=== PATIENT | female | born 1950 | race Caucasian/White ===

== ENCOUNTER 2016-06-12 10:41 | Inpatient (IN) | payer OTHER ==
[~2016-06-12] VITALS: Ht 160 cm; Wt 77.1 kg
--- NOTE | 2016-06-12 10:53 | NUR ---
PT STATES THAT SHE HAS COPD AND THAT FOR THE PAST MONTH SHE HAS HAD A COUGH, WAS STARTED ON STEROIDS 3 DAYS AGO AND USES NEBULIZER WITH NO RELIEF. PT COMPLAINS OF NON PRODUCTIVE COUGH AND FEELS SOB, O2 SAT 95 %
--- NOTE | 2016-06-12 11:07 | ED DYSPNEA/ASTHMA COMPLAINT ---
History of Present Illness General Chief Complaint: Dyspnea (COPD, CHF, Other) Stated Complaint: SIB MD CH, SOB/WHEEZING/COUGH Source: patient, old records Exam Limitations: no limitations Vital Signs & Intake/Output Vital Signs & Intake/Output Vital Signs Date Time Temp Pulse Resp B/P Pulse O2 O2 Flow FiO2 Ox Delivery Rate 06/12 1401 98.3 70 18 145/75 93 06/12 1204 93 06/12 1130 Room Air 06/12 1052 96.7 82 20 153/79 95 Room Air Allergies Coded Allergies: codeine (UNKNOWN 06/12/16) hydrocodone (GI UPSET 06/12/16) Triage Note: PT STATES THAT SHE HAS COPD AND THAT FOR THE PAST MONTH SHE HAS HAD A COUGH, WAS STARTED ON STEROIDS 3 DAYS AGO AND USES NEBULIZER WITH NO RELIEF. PT COMPLAINS OF NON PRODUCTIVE COUGH AND FEELS SOB, O2 SAT 95 % Triage Nurses Notes Reviewed? 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 She was started on some steroids earlier this week and has been using her nebulizer breathing treatments around- the-clock without improvement. She denies any chest pain, no sputum production no fever no chills no abdominal pain nausea vomiting no leg swelling. She states last time she was admitted for her COPD was in 2010 at which time he stopped smoking. He is feeling dizzy lightheaded or weak (MICAH DANIELS) Reconcile Medications Albuterol Sulfate (Proair Hfa) 90 MCG HFA.AER.AD 2 PUF INH Q4-6 PRN PRN RESPIRATORY (Reported) Albuterol Sulfate 2.5 MG/3 ML (0.083 %) VIAL.NEB 1 Vial INH/TULIO Q4P PRN RESPIRATORY (Reported) Brimonidine Tartrate/Timolol (Combigan Eye Drops) 0.2 %-0.5 % DROPS 1 DROP OP BID GLAUCOMA (Reported) Buspirone HCl 30 MG TABLET 1 TAB PO BID MENTAL HEALTH (Reported) Dorzolamide HCl 2 % DROPS 1 GTT OPH BID GLAUCOMA (Reported) Escitalopram Oxalate 20 MG TABLET 1 TAB PO DAILY MENTAL HEALTH (Reported) Hydrochlorothiazide 25 MG TABLET 1 TAB PO DAILY WATER PILL (Reported) Levothyroxine Sodium 150 MCG TABLET 1 TAB PO DAILY AC THYROID (Reported) Mirtazapine 30 MG TABLET 1 TAB PO QPM SLEEP (Reported) Montelukast Sodium 10 MG TABLET 1 TAB PO DAILY ALLERGIES (Reported) Potassium Chloride 20 MEQ TAB.ER.PRT 1 TAB PO DAILY SUPPLEMENT (Reported) Prednisone 10 MG TABLET 2 TAB PO DAILY BREATHING PROBLEMS (Reported) Ranitidine HCl 300 MG TABLET 1 TAB PO QPM HEARTBURN (Reported) Simvastatin (Simvastatin*) 40 MG TABLET 1 TAB PO QPM CHOLESTEROL (Reported) Trazodone HCl 50 MG TABLET 1 TAB PO QPM SLEEP (Reported) Umeclidinium Brm/Vilanterol Tr (Anoro Ellipta 62.5-25 Mcg INH) 62.5 MCG-25 MCG/ ACTUATION BLST.W.DEV 1 PUFF PO DAILY BREATHING PROBLEMS (Reported) (BECCA CORONEL,ADRIENNE [place]) Past History Travel History Traveled to [place] past 21 day No Medical History Any Pertinent Medical History? see below for history Neurological: NONE EENT: glaucoma Cardiovascular: hypertension, hyperlipidemia Respiratory: COPD Gastrointestinal: NONE Hepatic: NONE Renal: NONE Musculoskeletal: NONE Psychiatric: NONE Endocrine: hypothyroidism Blood Disorders: NONE Cancer(s): bladder cancer DIRECTOR CARDIOVASCULAR/Reproductive: NONE Pneumonia Vaccine: 08/10/10 Influenza Vaccine: 03/10/10 Surgical History Surgical History: non-contributory Psychosocial History Who do you live with Patient/Self What is your primary language Welsh Tobacco Use: Never used ETOH Use: denies use Illicit Drug Use: denies illicit drug use Family History Hx Contributory? No (MICAH DANIELS) Review of Systems Review of Systems Constitutional: Reports: see HPI. All Other Systems: Reviewed and Negative Comments Review of systems: See HPI, All other systems negative. Constitutional, no chills no fever, no malaise HEENT: No visual changes no sore throat no congestion, Cardiovascular: No chest pain , no palpitation Skin, no jaundice no rashes, no change in skin Respiratory: dyspnea cough no sputum GI: No nausea no vomiting, no diarrhea : No dysuria No hematuria, no frequency, no discharge Muscle skeletal: No joint pain, no joint swelling, no back pain Neurologic: No numbness no headache Psych: No stress Heme/endocrine: No bruising no bleeding Immunology: No lymphadenopathy (MICAH DANIELS) Physical Exam Physical Exam General Appearance: well developed/nourished, no apparent distress, alert, awake Respiratory: wheezing Comments: Well-developed well-nourished person in no acute distress HEENT: Normal EENT exam; PERRL, EOMI, HEAD is atraumatic. moist mucous membranes. Neck: Supple, normal range of motion Back: Nontender. Full range of motion Cardiovascular: Regular rate and rhythms no murmurs rubs or gallops Respiratory: Chest nontender.There were no bony deformities, no asymmetry. No respiratory distress. Wheezing bilaterally no rhonchi no rales Abdomen: Soft, nontender nondistended, no appreciable organomegaly. Normal bowel sounds. No rebound/guarding, Extremity: No edema, full range of motion of extremities Neuro: Alert oriented x3, motor sensory normal. There were no obvious focal neurologic abnormalities. Skin: No appreciable rash on exposed skin, skin is warm and dry. Psych: Mood and affect is normal, memory and judgment is normal. Core Measures ACS in differential dx? Yes Severe Sepsis Present: No Septic Shock Present: No (MICAH DANIELS) Progress Differential Diagnosis: asthma, AMI, bronchitis, costochondritis, CHF, COPD, musculoskeletal pain, pericarditis, pulmonary embolism, pneumonia, pneumothorax, rib fracture, unstable angina Diagnostic Imaging: Viewed by Me: Radiology Read. Discussed w/RAD: Radiology Read. Radiology Impression: PATIENT: CALVIN MATSON PRESENT AGE: 65 PATIENT ACCOUNT NO: [id number] : 51 LOCATION: [facility] ORDERING PHYSICIAN: ADRIENNE HERNANDEZ DO SERVICE DATE: 06/12/16 EXAM TYPE: RAD - XRY-CHEST XRAY, PA AND LATERAL EXAMINATION: XR CHEST CLINICAL INFORMATION: Cough. Shortness of breath. History of small cell lung cancer and bladder cancer. COMPARISON: CT scan of 08/27/15. TECHNIQUE: PA and lateral views of the chest were obtained. FINDINGS: No significant abnormality is noted involving the heart, lungs, mediastinum, bony thorax, or soft tissues. Minimal linear opacity at the left base is unchanged from previous and consistent with scarring. No focal consolidation, mass lesion or other abnormality is demonstrated. IMPRESSION: Unremarkable examination. DICTATED BY: LUISANA LUNA MD DATE/TIME DICTATED:06/12/161218 OBSERVER GRAVITY PROSPECTING:WILBERT DATE/ TIME TRANSCRIBED:06/12/161218 CONFIDENTIAL, DO NOT COPY WITHOUT APPROPRIATE AUTHORIZATION. <Electronically signed in Other Vendor System> SIGNED BY: LUISANA LUNA MD 06/12/16 1225 Initial ED EKG: normal intervals, normal p-waves, normal QRS complex, normal sinus rhythm (80) (MICAH DANIELS) Plan of Care: Orders Procedure Date/time Status Regular Diet 06/12 D Active Misc Message 06/12 1406 Active ED Holding Orders 06/12 1406 Active Vital Signs 06/12 1406 Active Code Status 06/12 1406 Active Admit to inpatient 06/12 1351 Active Patient Data 06/12 1335 Active BLOOD CULTURE 06/12 1137 Active TROPONIN LEVEL 06/12 1137 Complete COMPREHENSIVE METABOLIC PANEL 06/12 1137 Complete CBC WITHOUT DIFFERENTIAL 06/12 1137 Complete B-TYPE NATRIURETIC PEP (BNP) 06/12 1137 Complete EKG 06/12 1137 Active Current Medications Sig/Mario Start time Last Medication Dose Stop Time Status Admin Brimonidine Tartrate 1 GTT ONCE ONE 06/12 1545 UNVr (Alphagan) 06/12 1546 Dorzolamide HCl 1 GTT ONCE ONE 06/12 1545 UNVr (Trusopt 2% 10 ML) 06/12 1546 Buspirone HCl 30 MG ONCE ONE 06/12 1530 UNVr (Buspar) 06/12 1531 Laboratory Tests 06/12/16 1220: Anion Gap 17 H, Estimated GFR > 60, BUN/Creatinine Ratio 11.3, Glucose 134 H, Calcium 10.1, Total Bilirubin 0.4, AST 27, ALT 27, Alkaline Phosphatase 65, Troponin I < 0.01, Ivf-F-Ajwnghlsqeh Pept 94.2, Total Protein 7.3, Albumin 4.5, Globulin 2.8, Albumin/Globulin Ratio 1.6, CBC w Diff NO MAN DIFF REQ, RBC 4.61, MCV 91.3, MCH 31.2 H, RDW 13.6, MPV 7.4, Gran % 80.6 H, Lymphocytes % 11.6 L, Monocytes % 4.6, Eosinophils % 2.8, Basophils % 0.4, Absolute Granulocytes 8.0 H, Absolute Lymphocytes 1.1 L, Absolute Monocytes 0.5, Absolute Eosinophils 0.3 , Absolute Basophils 0, PUBS MCHC 34.2 Microbiology 06/12 1330 BLOOD: Blood Culture - RECD 06/12 1220 BLOOD: Blood Culture - RECD Labs ordered DuoNeb ordered patient medicated with solumedrol 125 IV Patient ambulatory sats dropped to 89% symptomatic, discussed with her need for admission at this time which she is in agreement with case was discussed with Dr. Beckham will admit (MICAH DANIELS) Departure Departure Time of Disposition: 1332 Disposition: STILL A PATIENT Condition: Stable Clinical Impression Primary Impression: COPD exacerbation Referrals: RANDA BECKHAM MD (PCP/Family) Departure Forms: Customer Survey General Discharge Information Admission Note Spoke With: RANDA BECKHAM MD Documentation of Exam: Documentation of any treatments & extenuating circumstances including Concerns Regarding Discharge (functional status, medication knowledge or non-compliance, living conditions, etc.) that warrant an admission rather than observation: Patient has failed outpatient therapy with by mouth steroids, oxygen sats dropped to 89% with ambulation premature discharge at this time would BE medically harmful require IV steroids breathing treatments when necessary pulmonology consult (MICAH DANIELS) PA/TITLE I TEACHER Co-Sign Statement Statement: ED Attending supervision documentation- [X] I saw and evaluated the patient. I have also reviewed all the pertinent lab results and diagnostic results. I agree with the findings and the plan of care as documented in the PA's/TITLE I TEACHER's documentation. [] I have reviewed the ED Record and agree with the PA's/TITLE I TEACHER's documentation. [] Additions or exceptions (if any) to the PAs/TITLE I TEACHER's note and plan are summarized below: [] (BECCA CORONEL,ADRIENNE North) Critical Care Note Critical Care Note Critical Care Time: non-applicable (MICAH DANIELS)
[2016-06-12] MEDS ORDERED: DORZOLAMIDE HCL10 M1 OPH (11:18)
[2016-06-12] MEDS ORDERED: COMBIGAN EYE DRO5 ML OP (11:18)
[2016-06-12] MEDS ORDERED: PREDNISONE10 M2 PO (11:18)
[2016-06-12] MEDS ORDERED: BUSPIRONE HCL30 M1 PO (11:19)
[2016-06-12] MEDS ORDERED: TRAZODONE HCL50 M1 PO (11:19)
[2016-06-12] MEDS ORDERED: MIRTAZAPINE30 M2 PO (11:19)
[2016-06-12] MEDS ORDERED: ANORO ELLIPTA1 EACH PO (11:20)
[2016-06-12] MEDS ORDERED: ESCITALOPRAM OX20 MG PO (11:20)
[2016-06-12] MEDS ORDERED: MONTELUKAST SOD10 M1 PO (11:21)
[2016-06-12] MEDS ORDERED: LEVOTHYROXINE150 MCG PO (11:21)
[2016-06-12] MEDS ORDERED: SIMVASTATIN40 M1 PO (11:22)
[2016-06-12] MEDS ORDERED: POTASSIUM CHLO20 ME2 PO (11:22)
[2016-06-12] MEDS ORDERED: HYDROCHLOROTHIA25 M1 PO (11:22)
--- NOTE | 2016-06-12 11:31 | NUR ---
NATHANAEL SENA TO BEDSIDE FOR PT EVAL.
--- NOTE | 2016-06-12 12:05 | NUR ---
PT TO AND FROM RAD BY STRETCHER. RESP AT BEDSIDE FOR DOUNEB.
--- NOTE | 2016-06-12 12:23 | NUR ---
IV EST, PT MEDICATED WITH SOLUMEDROL PER EMAR. BLOOD DRAWN AND SENT TO LAB-[facility],1ST SET OF [facility].
--- NOTE | 2016-06-12 12:25 | RADIOLOGY REPORT ---
EXAMINATION: XR CHEST CLINICAL INFORMATION: Cough. Shortness of breath. History of small cell lung cancer and bladder cancer. COMPARISON: CT scan of 08/27/15. TECHNIQUE: PA and lateral views of the chest were obtained. FINDINGS: No significant abnormality is noted involving the heart, lungs, mediastinum, bony thorax, or soft tissues. Minimal linear opacity at the left base is unchanged from previous and consistent with scarring. No focal consolidation, mass lesion or other abnormality is demonstrated. IMPRESSION: Unremarkable examination.
[2016-06-12 12:28] LABS: ABSOLUTE BASOPHIL COUNT 0 /CUMM (0.0-0.2); ABSOLUTE EOSINOPHIL COUNT 0.3 /CUMM (0.0-0.7); ABSOLUTE LYMPH COUNT 1.1 /CUMM (1.2-3.4); ABSOLUTE MONOCYTE COUNT 0.5 /CUMM (0.10-0.60); BASOPHIL % 0.4 % (0.0-2.0); EOSINOPHIL % 2.8 % (0-5); GRANULOCYTE % 80.6 % (42.2-75.2); HEMATOCRIT 42.1 % (37-47); MEAN CORPUSCULAR HGB 31.2 PG (27.0-31.0); MEAN CORPUSCULAR HGB CONC 34.2 G/DL (33.0-37.0); MEAN CORPUSCULAR VOLUME 91.3 FL (81.0-99.0); MEAN PLATELET VOLUME 7.4 FL (7.4-10.4); PLATELET COUNT 282 /CUMM (130-400); RBC DISTRIBUTION WIDTH 13.6 % (11.5-14.5); RED BLOOD CELL CT 4.61 /CUMM (4.20-5.40); WHITE BLOOD CELL COUNT 9.9 /CUMM (4.8-10.8)
--- NOTE | 2016-06-12 13:41 | History & Physical ---
See Addendum YUDI CORONEL,[facility] 06/12/16 1340: General Information and HPI MD Statement: I have seen and personally examined CALVIN MATSON and documented this H&P. The patient is a 65 year old F who presented with a patient stated chief complaint of cough and shortness of breath. Source of Information: patient Exam Limitations: no limitations History of Present Illness: This is a 65-year-old female with past medical history of COPD not on home oxygen, hypertension, depression, bladder cancer, hyperlipidemia, asthma, hypothyroidism, COPD, presents with worsening cough and shortness of breath. As per patient she started having cough, with thick yellowish sputum 2 weeks after Thanksgiving, which got better in the middle but for the past 2 weeks she has been having really bad cough productive of greenish sputum but no blood, shortness of breath, wheezing, she states that her lesion makes her shortness of breath worse, denies any fever, chills. She lives in assisted living facility and states that many people are sick around her including some volar admitted in hospital for pneumonia. [address] Quach who is her pari mutuel ticket cashier and she was she was started on Medrol pack, she took but did not improve her shortness of breath and will. She also states that she has been using her inhalers more often but has not made any significant difference in her shortness of breath. She denies any recent hospitalization or exacerbation of COPD, as hospitalization for COPD exacerbation was in 2010 that when she's quit smoking as well. She denies any nausea, vomiting, fever T, chills, abdominal pain, any changes in urinary symptoms or any tinges in bowel movements, As a complains of some numbness in her feet but no tingling, pain going on for a long time now. She follows Dr. Quach her pari mutuel ticket cashier, Dr. Camargo as her oncologist, He has had both her pneumonia anmd flu shot recently. Allergies/Medications Allergies: Coded Allergies: codeine (UNKNOWN 06/12/16) hydrocodone (GI UPSET 06/12/16) Home Med list Albuterol Sulfate (Proair Hfa) 90 MCG HFA.AER.AD 2 PUF INH Q4-6 PRN PRN RESPIRATORY (Reported) Albuterol Sulfate 2.5 MG/3 ML (0.083 %) VIAL.NEB 1 Vial INH/TULIO Q4P PRN RESPIRATORY (Reported) Brimonidine Tartrate/Timolol (Combigan Eye Drops) 0.2 %-0.5 % DROPS 1 DROP OP BID GLAUCOMA (Reported) Buspirone HCl 30 MG TABLET 1 TAB PO BID MENTAL HEALTH (Reported) Dorzolamide HCl 2 % DROPS 1 GTT OPH BID GLAUCOMA (Reported) Escitalopram Oxalate 20 MG TABLET 1 TAB PO DAILY MENTAL HEALTH (Reported) Hydrochlorothiazide 25 MG TABLET 1 TAB PO DAILY WATER PILL (Reported) Levothyroxine Sodium 150 MCG TABLET 1 TAB PO DAILY AC THYROID (Reported) Mirtazapine 30 MG TABLET 1 TAB PO QPM SLEEP (Reported) Montelukast Sodium 10 MG TABLET 1 TAB PO DAILY ALLERGIES (Reported) Potassium Chloride 20 MEQ TAB.ER.PRT 1 TAB PO DAILY SUPPLEMENT (Reported) Prednisone 10 MG TABLET 2 TAB PO DAILY BREATHING PROBLEMS (Reported) Ranitidine HCl 300 MG TABLET 1 TAB PO QPM HEARTBURN (Reported) Simvastatin (Simvastatin*) 40 MG TABLET 1 TAB PO QPM CHOLESTEROL (Reported) Trazodone HCl 50 MG TABLET 1 TAB PO QPM SLEEP (Reported) Umeclidinium Brm/Vilanterol Tr (Anoro Ellipta 62.5-25 Mcg INH) 62.5 MCG-25 MCG/ ACTUATION BLST.W.DEV 1 PUFF PO DAILY BREATHING PROBLEMS (Reported) Compliance With Home Meds: GOOD Past History Travel History Traveled to [place] past 21 day No Medical History Neurological: NONE EENT: glaucoma Cardiovascular: hypertension, hyperlipidemia Respiratory: COPD Gastrointestinal: NONE Hepatic: NONE Renal: NONE Musculoskeletal: NONE Psychiatric: NONE Endocrine: hypothyroidism Blood Disorders: NONE Cancer(s): bladder cancer 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 Assisted Living Who Do You Live With? self Services at Home: None Primary Language: Bengali Smoking Status: Former Smoker ETOH Use: denies use Illicit Drug Use: denies illicit drug use Functional Ability ADLs Independent: dressing, eating, toileting, bathing. Ambulation: independent IADLs Independent: shopping, housework, finances, food prep, telephone, transportation , medication admin. Review of Systems Review of Systems Constitutional: Denies: chills, fever. Cardiovascular: Denies: chest pain, palpitations. Respiratory: Reports: see HPI, cough, short of breath, sputum production. GI: Denies: abdominal pain, constipation, diarrhea, nausea, vomiting. Genitourinary: Denies: dysuria, frequency. Exam & Diagnostic Data Last 24 Hrs of Vital Signs/I&O Vital Signs Date Time Temp Pulse Resp B/P Pulse O2 O2 Flow FiO2 Ox Delivery Rate 06/12 1740 98.5 83 20 160/76 92 Room Air 06/12 1720 92 Room Air 06/12 1657 91 06/12 1624 99.3 90 18 169/84 93 Room Air 06/12 1401 98.3 70 18 145/75 93 06/12 1204 93 06/12 1130 Room Air 06/12 1052 96.7 82 20 153/79 95 Room Air Intake & Output 06/12 1600 06/12 0800 06/12 0000 Intake Total Output Total Balance Patient 77.111 kg Weight Physical Exam General Appearance Alert, Oriented X3, Cooperative, No Acute Distress Cardiovascular Regular Rate, Normal S1, Normal S2, No Murmurs Lungs b/l diffuse wheezing Abdomen Normal Bowel Sounds, Soft, No Tenderness Extremities No Clubbing, No Cyanosis, No Edema Last 24 Hrs of Labs/Jcaob: Laboratory Tests 06/12/16 1220: Anion Gap 17 H, Estimated GFR > 60, BUN/Creatinine Ratio 11.3, Glucose 134 H, Calcium 10.1, Total Bilirubin 0.4, AST 27, ALT 27, Alkaline Phosphatase 65, Troponin I < 0.01, Zyz-J-Seawljrlupv Pept 94.2, Total Protein 7.3, Albumin 4.5, Globulin 2.8, Albumin/Globulin Ratio 1.6, CBC w Diff NO MAN DIFF REQ, RBC 4.61, MCV 91.3, MCH 31.2 H, RDW 13.6, MPV 7.4, Gran % 80.6 H, Lymphocytes % 11.6 L, Monocytes % 4.6, Eosinophils % 2.8, Basophils % 0.4, Absolute Granulocytes 8.0 H, Absolute Lymphocytes 1.1 L, Absolute Monocytes 0.5, Absolute Eosinophils 0.3 , Absolute Basophils 0, PUBS MCHC 34.2 Microbiology 06/12 1330 BLOOD: Blood Culture - RECD 06/12 1220 BLOOD: Blood Culture - RECD Diagnostic Data EKG Results Sinus rhythm heart rate 75 Assessment/Plan Assessment: This is a 65-year-old female with past medical history of COPD not on home oxygen, hypertension, depression, bladder cancer, hyperlipidemia, asthma, hypothyroidism, COPD, presents with worsening cough and shortness of breath. Vitals upon presentation temperature 96.7, pulse 82, respiratory rate 20, pressure 153/79, saturating in mid 95 on room air. Pertinent labs, white count 9.9, H&H stable, BP within normal limits Chest x-ray did not show any acute cardiopulmonary findings. We'll admit the patient on Tamiflu and monitor for the following conditions: COPD exacerbation: Oxygen supplementation as needed to keep saturation above 90% TRC/nebs as needed IV Solu-Medrol 60 mg every 6 hours Will watch off of antibiotics as patient does not have any fever, any white count. History of hyperlipidemia: Continue atorvastatin 20 mg daily History of hypothyroidism We'll continue levothyroxine 0.15 mg daily History of hypertension We'll continue home dose of hydrochlorothiazide 25 mg daily History of depression We'll continue Lexapro 20 mg daily and mirtazapine, Mild pain pathway DVT prophylaxis with Lovenox Patient's full code. As Ranked By This Provider Problem List: 1. COPD exacerbation Core Measures/Miscellaneous Acute Coronary Syndrome ACS Diagnosis: No Cerebrovascular Accident CVA/TIA Diagnosis: No Congestive Heart Failure CHF Diagnosis: No Venous Thromboembolism VTE Risk Factors: Acute medical illness, Age > 40 VTE Prophylaxis Ordered Inpt: [facility]- [facility] prophylaxis d/t: No contraindications No VTE Pharm Prophylaxis d/t: No contraindications VTE Diagnosis: No VTE Type: NONE VTE Confirmed by (Test): NONE Severe Sepsis Severe Sepsis Present: No Septic Shock Septic Shock Present: No Miscellaneous Documentation Attending Case Discussed With: RANDA SMITH MD Primary Care Physician: RANDA SMITH MD Patient sees these Specialists . Level of Patient Care: General Medicine OBDULIO PENG MD 06/12/162025: Resident Review Statement Resident Statement: examined this patient, discussed with software intern, agreed with software intern Other Findings: 65-year-old female with a past medical history COPD not on home oxygen, asthma, bladder cancer status post resection, radiation and chemotherapy 4 years ago, hypertension, hypothyroidism, former smoker who presents with cough productive of creamy sputum and shortness of breath on exertion and occasionally at rest for a few weeks now. Cough and shortness of breath not improved by increased use of nebs at home. She called her pari mutuel ticket cashier Dr. Quach who gave her a medrol dose pack which she took without relief hence her her presentation today. She also reports bilateral numbness of the lower extremities from ankles to her feet for the past 4 months. Reports multiple sick contacts which she is in an elderly people home. She received her flu and pneumonia shots last year. On examination-she is awake, alert and oriented 3, coarse expiratory wheezing heard bilaterally, heart sounds regular, no murmurs, decreased sensation in the bilateral lower extremities especially on the plantar surfaces of feet no pedal edema Assessment COPD exacerbation Plan Admit to gen med IV Solu-Medrol 60 mg every 6 hours IV azithromycin [facility] nebs Check rapid flu Sputum cultures Check vitamin D and vitamin B12 Call pulmonary consult in a.m.-Dr. Trejo Resume important home medications DVT present prophylaxis with subcutaneous Lovenox Heart healthy diet
--- NOTE | 2016-06-12 14:10 | NUR ---
FOOD TRAY ORDERED FOR PT.
[2016-06-12] MEDS ORDERED: RANITIDINE HCL300 M1 PO (14:28)
[2016-06-12] MEDS ORDERED: PROAIR HFA8.5 GM INH (14:29)
[2016-06-12] MEDS ORDERED: ALBUTEROL2.5 MG/3 M INH/SOL (14:29)
--- NOTE | 2016-06-12 14:32 | NUR ---
LUNCH TRAY DELIVERED, PT ALERT AND SITTING UP IN BED TO EAT IN NAD. DENIES ANY COMPLAINTS/CONCERNS.
--- NOTE | 2016-06-12 15:25 | NUR ---
PT ADMITTED TO ROOM 229-2
--- NOTE | 2016-06-12 16:00 | NUR ---
HOUSE STAFF AT BEDSIDE
--- NOTE | 2016-06-12 16:21 | NUR ---
RESP CALLED FOR LOUANNB.
--- NOTE | 2016-06-12 16:54 | NUR ---
RESP AT BEDSIDE FOR DUONEB. REPORT GIVEN TO JULIO CÉSAR BROWN
--- NOTE | 2016-06-12 17:03 | NUR ---
[facility] CALLED FOR TRANSPORT.
[2016-06-12 17:40] VITALS: BP 160/76
--- NOTE | 2016-06-12 17:45 | NUR ---
PT ARRIVED TO FLOOR AT 1720 FROM ER VIA STRETCHER. PT A/V/OX3. ON RA. O2 SAT 92%. INSP/EXP WHEEZES NOTED THROUGHOUT LUNGS. NONPRODUCTIVE COUGH. BP 160/76, BOTH PORT SURVEYOR AND RESIDENT AWARE. SKIN INTACT. NO C/O PAIN AT THIS TIME. STEADY GAIT OOB. PT C/O OF HAVING PENCIL LOOSE BMS THAT ARE CHRONIC. REGULAR DIET. PT ORIENTED TO ROOM, CALL HUDSON, AND STAFF. WILL CONTINUE TO MONITOR.
--- NOTE | 2016-06-12 20:11 | Admission Certification ---
Admission Certification Certification Statement - As attending physician, I certify that at the time of - admission, based on clinical presentation, severity of - symptoms, need for further diagnostic testing and - therapeutic interventions, and risk of adverse outcomes - without in-hospital treatment, in my clinical assessment, - this patient requires an acute hospital stay for a minimum - of two nights or longer. I have also considered psychsocial - factors such as support system, advanced age, financial - issues, cognitive issues, and failed out-patient treatments, - past re-admission history, safety of patient, and lack of - compliance as applicable. Specific rationale supporting this admission is: Exacerbation of her COPD
--- NOTE | 2016-06-12 20:15 | PN- Att Addend ---
Attending Addendum Attending Brief Note 65-year-old white female history of COPD is doing fairly well until after Thanksgiving when she started having trouble breathing increased wheezes to the point she needed more inhalers. She even took a Medrol dose pack which this time did not work is coughing and bringing up yellow greenish sputum. No fever no chills or came to the ER was admitted for intensive treatment with IV steroids antibiotic therapy check sputum for O2 saturation around 92 % on room air. Her chest x-ray showed no acute infiltrates, her white count 9900. Laboratory Tests 06/12 1220 Chemistry Sodium (137 - 145 mmol/L) 142 Potassium (3.5 - 5.1 mmol/L) 3.8 Chloride (98 - 107 mmol/L) 98 Carbon Dioxide (22 - 30 mmol/L) 27 Anion Gap (5 - 16) 17 H BUN (7 - 17 mg/dL) 9 Creatinine (0.5 - 1.0 mg/dL) 0.8 Estimated GFR (>60 ml/min) > 60 BUN/Creatinine Ratio (7 - 25 %) 11.3 Glucose (65 - 99 mg/dL) 134 H Calcium (8.4 - 10.2 mg/dL) 10.1 Total Bilirubin (0.2 - 1.3 mg/dL) 0.4 AST (14 - 36 U/L) 27 ALT (9 - 52 U/L) 27 Alkaline Phosphatase (<127 U/L) 65 Troponin I (< 0.11 ng/ml) < 0.01 Vtf-P-Idheqkylhku Pept (<125 pg/mL) 94.2 Total Protein (6.3 - 8.2 g/dL) 7.3 Albumin (3.5 - 5.0 g/dL) 4.5 Globulin (1.9 - 4.2 gm/dL) 2.8 Albumin/Globulin Ratio (1.1 - 2.2 %) 1.6 Vitamin B12 (239 - 931 pg/mL) Pending 25-OH Vitamin D Total (30 - 100 ng/ml) Pending Hematology CBC w Diff NO MAN DIFF REQ WBC (4.8 - 10.8 /CUMM) 9.9 RBC (4.20 - 5.40 /CUMM) 4.61 Hgb (12.0 - 16.0 G/DL) 14.4 Hct (37 - 47 %) 42.1 MCV (81.0 - 99.0 FL) 91.3 MCH (27.0 - 31.0 PG) 31.2 H RDW (11.5 - 14.5 %) 13.6 Plt Count (130 - 400 /CUMM) 282 MPV (7.4 - 10.4 FL) 7.4 Gran % (42.2 - 75.2 %) 80.6 H Lymphocytes % (20.5 - 51.1 %) 11.6 L Monocytes % (1.7 - 9.3 %) 4.6 Eosinophils % (0 - 5 %) 2.8 Basophils % (0.0 - 2.0 %) 0.4 Absolute Granulocytes (1.4 - 6.5 /CUMM) 8.0 H Absolute Lymphocytes (1.2 - 3.4 /CUMM) 1.1 L Absolute Monocytes (0.10 - 0.60 /CUMM) 0.5 Absolute Eosinophils (0.0 - 0.7 /CUMM) 0.3 Absolute Basophils (0.0 - 0.2 /CUMM) 0 PUBS MCHC (33.0 - 37.0 G/DL) 34.2
--- NOTE | 2016-06-12 20:30 | NUR ---
AT THIS TIME, PT C/O PAIN TO THE RIGHT LOWER EXTREMITY. PT STATED THAT SHE HAD THE ALPS ON HER LEGS AND HAD TO TAKE THE RIGHT ALP OFF DUE TO PAIN WHEN THE ALP WOULD INFLATE. NO REDNESS, SWELLING, OR TENDERNESS NOTED. MEDICAL STENOGRAPHER BEATA NOTIFIED. ORDER FOR ULTRASOUND ACKNOWLEDGED. ULTRASOUND CALLED THIS RN AT APPROX 2100 TO ASK IF THE ULTRASOUND CAN BE DONE ON 06/13/16 AM. THIS RN CALLED MEDICAL STENOGRAPHER BEATA. PER BEATA, OK FOR ULTRASOUND TO BE DONE ON 06/13/16 AM.
[2016-06-12 22:46] VITALS: BP 120/70
[2016-06-13 06:53] VITALS: BP 164/80
[2016-06-13 08:38] LABS: ABSOLUTE BASOPHIL COUNT 0 /CUMM (0.0-0.2); ABSOLUTE EOSINOPHIL COUNT 0 /CUMM (0.0-0.7); ABSOLUTE GRANULOCYTE CT 9.5 /CUMM (1.4-6.5); ABSOLUTE LYMPH COUNT 1.1 /CUMM (1.2-3.4); ABSOLUTE MONOCYTE COUNT 0.4 /CUMM (0.10-0.60); BASOPHIL % 0 % (0.0-2.0); EOSINOPHIL % 0.2 % (0-5); HEMATOCRIT 41.5 % (37-47); MEAN CORPUSCULAR HGB 31.4 PG (27.0-31.0); MEAN CORPUSCULAR VOLUME 92.3 FL (81.0-99.0); MEAN PLATELET VOLUME 7.6 FL (7.4-10.4); PLATELET COUNT 278 /CUMM (130-400); RBC DISTRIBUTION WIDTH 13.7 % (11.5-14.5); RED BLOOD CELL CT 4.49 /CUMM (4.20-5.40); WHITE BLOOD CELL COUNT 11.1 /CUMM (4.8-10.8)
--- NOTE | 2016-06-13 08:48 | PN- Housestaff ---
Subjective Follow-up For: COPD exacerbation Subjective: Patient seen and examined this morning. She was lying in bed in no acute distress, she is to go for Doppler of the lower left extremity since he was complaining of pain to rule out DVT, has been afebrile, complains of shortness of breath, cough and wheezing. . Review of Systems Constitutional: Denies: chills, fever. Cardiovascular: Denies: chest pain, palpitations. Respiratory: Reports: cough, short of breath, sputum production, wheezing. Gastrointestinal: Denies: abdominal pain, constipation, diarrhea, nausea, vomiting. Genitourinary: Denies: dysuria, frequency. Objective Last 24 Hrs of Vital Signs/I&O Vital Signs Date Time Temp Pulse Resp B/P Pulse O2 O2 Flow FiO2 Ox Delivery Rate 06/13 1623 94 Room Air 06/13 1444 98.5 84 20 144/80 94 Room Air 06/13 0800 92 06/13 0759 95 Room Air Room Air 06/13 0653 98.1 93 20 164/80 90 Room Air 06/13 0000 92 Room Air 06/12 2246 98.1 81 20 120/70 92 Room Air 06/12 2051 Room Air 06/12 1740 98.5 83 20 160/76 92 Room Air Intake & Output 06/13 1600 06/13 0800 06/13 0000 Intake Total 600 800 980 Output Total Balance 600 800 980 Intake, IV 0 280 Intake, Oral 600 800 700 Number 0 Bowel Movements Patient 77.111 kg Weight Physical Exam General Appearance: Alert, Oriented X3, Cooperative, No Acute Distress Cardiovascular: Regular Rate, Normal S1, Normal S2, No Murmurs Lungs: b/l wheeze Abdomen: Normal Bowel Sounds, Soft, No Tenderness Extremities: No Clubbing, No Cyanosis, No Edema Current Medications: Current Medications Sig/Mario Start time Last Medication Dose Route Stop Time Status Admin Acetaminophen 650 MG Q6P PRN 06/12 1745 AC PO Albuterol Sulfate 3 ML EVERY 4 HRS/AWAKE 06/12 211 AC 06/13 INH 1610 Atorvastatin Calcium 20 MG 1700 06/13 1700 AC PO Azithromycin 500 MG 2200 06/13 2199 AC Dextrose/Water 250 ML IV Azithromycin 500 MG DAILY 06/12 1913 DC 06/12 Dextrose/Water 250 ML IV 2125 Brimonidine Tartrate 1 GTT BID 06/12 2199 AC 06/13 OPH 0856 Buspirone HCl 30 MG BID 06/12 2200 AC 06/13 PO 0856 Dorzolamide HCl 1 GTT BID 06/12 2200 AC 06/13 OPH 0855 Enoxaparin Sodium 40 MG DAILY 06/12 1743 AC SC Escitalopram Oxalate 20 MG DAILY 06/13 1000 AC 06/13 PO 0856 Famotidine 20 MG DAILY 06/13 1000 AC 06/13 PO 0629 Hydrochlorothiazide 25 MG DAILY 06/12 1746 AC 06/13 PO 0856 Levothyroxine Sodium 0.15 MG DAILY AC 06/13 0700 AC 06/13 PO 0625 Methylprednisolone 60 MG Q6 06/12 1800 AC 06/13 IV 06/15 1201 1259 Mirtazapine 30 MG QPM 06/12 2200 AC 06/12 PO 2127 Montelukast Sodium 10 MG AT BEDTIME 06/12 2199 AC 06/12 PO 2124 Non-Formulary 0 SEE ADMIN CRITERIA 06/12 1800 CAN Medication ANY Patient Medication 1 ED .STK-MED ONE 06/13 1358 DC Teaching ED 06/13 1359 Senna/Docusate Sodium 1 TAB ONCE ONE 06/13 1700 DC PO 06/13 1701 Trazodone HCl 50 MG QPM 06/12 2200 AC 06/12 PO 2124 Last 24 Hrs of Lab/Jacob Results Last 24 Hrs of Labs/Mics: Laboratory Tests 06/13/16 0740: Anion Gap 20 H, Estimated GFR > 60, BUN/Creatinine Ratio 22.5, CBC w Diff NO MAN DIFF REQ, RBC 4.49, MCV 92.3, MCH 31.4 H, RDW 13.7, MPV 7.6, Gran % 85.8 H , Lymphocytes % 10.2 L, Monocytes % 3.8, Eosinophils % 0.2, Basophils % 0 L, Absolute Granulocytes 9.5 H, Absolute Lymphocytes 1.1 L, Absolute Monocytes 0.4, Absolute Eosinophils 0, Absolute Basophils 0, PUBS MCHC 34.0 Microbiology 06/12 1925 LOWER RESP: Respiratory Culture - CAN Cancelled: NO SAMPLE COLLECTED 06/12 1925 LOWER RESP: Gram Stain - CAN Cancelled: NO SAMPLE COLLECTED Assessment/Plan Assessment: This is a 65-year-old female with past medical history of COPD not on home oxygen, hypertension, depression, bladder cancer, hyperlipidemia, asthma, hypothyroidism, COPD, presents with worsening cough and shortness of breath. Vitals upon presentation temperature 96.7, pulse 82, respiratory rate 20, pressure 153/79, saturating in mid 95 on room air. Pertinent labs, white count 9.9, H&H stable, BP within normal limits Chest x-ray did not show any acute cardiopulmonary findings. We are currently monitoring for the following conditions: COPD exacerbation: Oxygen supplementation as needed to keep saturation above 90% TRC/nebs as needed IV Solu-Medrol 60 mg every 6 hours IV azithromycin does not have any fever, any white count. History of hyperlipidemia: Continue atorvastatin 20 mg daily History of hypothyroidism We'll continue levothyroxine 0.15 mg daily History of hypertension We'll continue home dose of hydrochlorothiazide 25 mg daily History of depression We'll continue Lexapro 20 mg daily and mirtazapine, Mild pain pathway DVT prophylaxis with Lovenox Patient's full code. Problem List: 1. COPD exacerbation Pain Ratin Pain Location: none Pain Goal: Remain pain free Pain Plan: see A/P Tomorrow's Labs & Rationales: CBC in setting of inf
[2016-06-13 09:30] LABS: GRANULOCYTE % 85.8 % (42.2-75.2)
--- NOTE | 2016-06-13 11:09 | PN- Att Addend ---
Attending Addendum Attending Brief Note Patient having a leg ultrasounds at this time to make sure she doesn't have DVT she complained earlier of some pain in that leg. Her breathing she says is okay if she does not exert herself with exertion still has some shortness of breath and wheezes patient is a febrile no major changes on physical with Dr. Berg to follow the patient with me and will follow his recommendations regarding the IV steroids and other medications continued T RC Current Medications Sig/Mario Start time Last Medication Dose Route Stop Time Status Admin Acetaminophen 650 MG Q6P PRN 06/12 1745 AC PO Albuterol Sulfate 3 ML EVERY 4 HRS/AWAKE 06/12 2115 AC 06/13 INH 0756 Albuterol Sulfate 3 ML ONCE ONE 06/12 1630 DC 06/12 INH 06/12 1631 1656 Albuterol Sulfate 3 ML ONCE ONE 06/12 1145 DC 06/12 INH 06/12 1146 1157 Atorvastatin Calcium 20 MG 1700 06/13 1700 AC PO Azithromycin 500 MG 2200 06/13 2200 AC Dextrose/Water 250 ML IV Azithromycin 500 MG DAILY 06/12 1913 DC 06/12 Dextrose/Water 250 ML IV 2125 Brimonidine Tartrate 1 GTT BID 06/12 2200 AC 06/13 OPH 0856 Brimonidine Tartrate 1 GTT ONCE ONE 06/12 1545 DC 06/12 OPH 06/12 1546 1820 Buspirone HCl 30 MG BID 06/12 2200 AC 06/13 PO 0856 Buspirone HCl 30 MG ONCE ONE 06/12 1530 DC 06/12 PO 06/12 1531 1614 Dorzolamide HCl 1 GTT BID 06/12 2200 AC 06/13 OPH 0855 Dorzolamide HCl 1 GTT ONCE ONE 06/12 1545 DC 06/12 OPH 06/12 1546 1614 Enoxaparin Sodium 40 MG DAILY 06/12 1743 AC SC Escitalopram Oxalate 20 MG DAILY 06/13 1000 AC 06/13 PO 0856 Famotidine 20 MG DAILY 06/13 1000 AC 06/13 PO 0629 Hydrochlorothiazide 25 MG DAILY 06/12 1746 AC 06/13 PO 0856 Ipratropium [place] 2.5 ML ONCE ONE 06/12 1630 DC 06/12 INH 06/12 1631 1656 Ipratropium [place] 2.5 ML ONCE ONE 01/12 1145 DC 06/12 INH 06/12 1146 1157 Levothyroxine Sodium 0.15 MG DAILY AC 06/13 0700 AC 06/13 PO 0625 Methylprednisolone 60 MG Q6 06/12 1800 AC 06/13 IV 06/15 1201 0624 Methylprednisolone 0 .STK-MED ONE 06/12 1209 DC .ROUTE Methylprednisolone 125 MG ONCE ONE 06/12 1145 DC 06/12 IV 06/12 1146 1215 Mirtazapine 30 MG QPM 06/12 2199 AC 06/12 PO 2126 Montelukast Sodium 10 MG AT BEDTIME 06/12 2199 AC 06/12 PO 2123 Non-Formulary 0 SEE ADMIN CRITERIA 06/12 1800 CAN Medication ANY Trazodone HCl 50 MG QPM 06/12 2199 AC 06/12 PO 2123 Laboratory Tests 06/13/16 0740: Anion Gap 20 H, Estimated GFR > 60, BUN/Creatinine Ratio 22.5, CBC w Diff NO MAN DIFF REQ, RBC 4.49, MCV 92.3, MCH 31.4 H, RDW 13.7, MPV 7.6, Gran % 85.8 H , Lymphocytes % 10.2 L, Monocytes % 3.8, Eosinophils % 0.2, Basophils % 0 L, Absolute Granulocytes 9.5 H, Absolute Lymphocytes 1.1 L, Absolute Monocytes 0.4, Absolute Eosinophils 0, Absolute Basophils 0, PUBS MCHC 34.0 06/12/16 1220: Anion Gap 17 H, Estimated GFR > 60, BUN/Creatinine Ratio 11.3, Glucose 134 H, Calcium 10.1, Total Bilirubin 0.4, AST 27, ALT 27, Alkaline Phosphatase 65, Troponin I < 0.01, Oqw-N-Slvhrmzkkjy Pept 94.2, Total Protein 7.3, Albumin 4.5, Globulin 2.8, Albumin/Globulin Ratio 1.6, Vitamin B12 486, 25-OH Vitamin D Total 34.9, CBC w Diff NO MAN DIFF REQ, RBC 4.61, MCV 91.3, MCH 31.2 H, RDW 13.6, MPV 7.4, Gran % 80.6 H, Lymphocytes % 11.6 L, Monocytes % 4.6, Eosinophils % 2.8, Basophils % 0.4, Absolute Granulocytes 8.0 H, Absolute Lymphocytes 1.1 L, Absolute Monocytes 0.5, Absolute Eosinophils 0.3, Absolute Basophils 0, PUBS MCHC 34.2 Microbiology Date/Time Procedure - Status Source Growth 06/12 1925 Respiratory Culture - COLB LOWER RESP 06/12 1925 Gram Stain - COLB LOWER RESP 06/12 1330 Blood Culture - RECD BLOOD 06/12 1220 Blood Culture - RECD BLOOD Vital Signs Date Time Temp Pulse Resp B/P Pulse O2 O2 Flow FiO2 Ox Delivery Rate 06/13 0759 95 Room Air Room Air 06/13 0653 98.1 93 20 164/80 90 Room Air
--- NOTE | 2016-06-13 11:20 | ULTRASOUND REPORT ---
EXAMINATION: RIGHT LOWER EXTREMITY VENOUS ULTRASOUND CLINICAL INFORMATION: Right lower extremity pain and edema COMPARISON: None. TECHNIQUE: Doppler spectral analysis and color flow Doppler imaging was performed of the right lower extremity. Compression and augmentation maneuvers were performed. FINDINGS: The right common femoral, femoral, popliteal and calf veins were well-identified and normal. They demonstrate normal compressibility and color fill-in. IMPRESSION: No evidence for right lower extremity deep vein thrombosis.
--- NOTE | 2016-06-13 11:42 | Cons- Pulmonary ---
General Information and HPI Consulting Request Date of Consult: 06/13/16 Requested By: nicol Reason for Consult: Shortness of breath bronchospasm History of Present Illness: Patient is 65-year-old with COPD admitted because of persistent cough shortness of breath. Patient had increasing symptoms was prescribed prednisone 40 mg a day. She failed to improve after several days and felt worse came to the emergency room where she was found to be in bronchospasm. Since having been admitted after receiving nebs and IV steroids she feels somewhat improved. Because of right calf pain getting a duplex ultrasound was done which was negative her chest x-ray is unrevealing Allergies/Medications Allergies: Coded Allergies: codeine (UNKNOWN 06/12/16) hydrocodone (GI UPSET 06/12/16) Home Med List: Albuterol Sulfate (Proair Hfa) 90 MCG HFA.AER.AD 2 PUF INH Q4-6 PRN PRN RESPIRATORY (Reported) Albuterol Sulfate 2.5 MG/3 ML (0.083 %) VIAL.NEB 1 Vial INH/TULIO Q4P PRN RESPIRATORY (Reported) Brimonidine Tartrate/Timolol (Combigan Eye Drops) 0.2 %-0.5 % DROPS 1 DROP OP BID GLAUCOMA (Reported) Buspirone HCl 30 MG TABLET 1 TAB PO BID MENTAL HEALTH (Reported) Dorzolamide HCl 2 % DROPS 1 GTT OPH BID GLAUCOMA (Reported) Escitalopram Oxalate 20 MG TABLET 1 TAB PO DAILY MENTAL HEALTH (Reported) Hydrochlorothiazide 25 MG TABLET 1 TAB PO DAILY WATER PILL (Reported) Levothyroxine Sodium 150 MCG TABLET 1 TAB PO DAILY AC THYROID (Reported) Mirtazapine 30 MG TABLET 1 TAB PO QPM SLEEP (Reported) Montelukast Sodium 10 MG TABLET 1 TAB PO DAILY ALLERGIES (Reported) Potassium Chloride 20 MEQ TAB.ER.PRT 1 TAB PO DAILY SUPPLEMENT (Reported) Prednisone 10 MG TABLET 2 TAB PO DAILY BREATHING PROBLEMS (Reported) Ranitidine HCl 300 MG TABLET 1 TAB PO QPM HEARTBURN (Reported) Simvastatin (Simvastatin*) 40 MG TABLET 1 TAB PO QPM CHOLESTEROL (Reported) Trazodone HCl 50 MG TABLET 1 TAB PO QPM SLEEP (Reported) Umeclidinium Brm/Vilanterol Tr (Anoro Ellipta 62.5-25 Mcg INH) 62.5 MCG-25 MCG/ ACTUATION BLST.W.DEV 1 PUFF PO DAILY BREATHING PROBLEMS (Reported) Review of Systems Review of Systems Constitutional: Denies: chills, fever. Cardiovascular: Denies: chest pain, edema, peripheral edema, syncope. Respiratory: Reports: cough, short of breath, sputum production, wheezing. GI: Denies: abdominal pain, diarrhea, melena. Past History Travel History Traveled to [place] past 21 day No Medical History Blood Transfusion Hx: Yes Neurological: peripheral neuropathy EENT: glaucoma Cardiovascular: hypertension, hyperlipidemia Respiratory: COPD Gastrointestinal: NONE Hepatic: NONE Renal: NONE Musculoskeletal: NONE Psychiatric: NONE Endocrine: hypothyroidism Blood Disorders: NONE Cancer(s): bladder cancer CAREER TRANSITION SPECIALIST/Reproductive: NONE Surgical History Surgical History: 1 Family History Relations & Conditions If Any: Relation not specified for: *No pertinent family history Psychosocial History Where Do You Live? Assisted Living Who Do You Live With? self Services at Home: None Primary Language: Guamanian Smoking Status: Former Smoker ETOH Use: denies use Illicit Drug Use: denies illicit drug use Functional Ability ADLs Independent: dressing, eating, toileting, bathing. Ambulation: independent IADLs Independent: shopping, housework, finances, food prep, telephone, transportation , medication admin. Exam & Diagnostic Data Last 24 Hrs of Vital Signs/I&O Vital Signs Date Time Temp Pulse Resp B/P Pulse O2 O2 Flow FiO2 Ox Delivery Rate 06/13 0759 95 Room Air Room Air 06/13 0653 98.1 93 20 164/80 90 Room Air 06/12 2246 98.1 81 20 120/70 92 Room Air 06/12 2051 Room Air 06/12 1740 98.5 83 20 160/76 92 Room Air 06/12 1720 92 Room Air 06/12 1657 91 06/12 1624 99.3 90 18 169/84 93 Room Air 06/12 1401 98.3 70 18 145/75 93 06/12 1204 93 Intake & Output 06/13 1600 06/13 0800 06/13 0000 Intake Total 980 Output Total Balance 980 Intake, IV 280 Intake, Oral 700 Patient 170 lb Weight Oxygen saturation room air is 95% HNT exam shows no adenopathy exam for chest shows diffuse bilateral wheezing cardiac exam shows regular S1 and S2 without murmurs abdominal exam is soft exam of her extremities show no edema calf tenderness or Homans sign Last 48 Hrs of Labs/Jacob: Laboratory Tests 06/13/16 0740: Anion Gap 20 H, Estimated GFR > 60, BUN/Creatinine Ratio 22.5, CBC w Diff NO MAN DIFF REQ, RBC 4.49, MCV 92.3, MCH 31.4 H, RDW 13.7, MPV 7.6, Gran % 85.8 H , Lymphocytes % 10.2 L, Monocytes % 3.8, Eosinophils % 0.2, Basophils % 0 L, Absolute Granulocytes 9.5 H, Absolute Lymphocytes 1.1 L, Absolute Monocytes 0.4, Absolute Eosinophils 0, Absolute Basophils 0, PUBS MCHC 34.0 06/12/16 1220: Anion Gap 17 H, Estimated GFR > 60, BUN/Creatinine Ratio 11.3, Glucose 134 H, Calcium 10.1, Total Bilirubin 0.4, AST 27, ALT 27, Alkaline Phosphatase 65, Troponin I < 0.01, Som-Y-Lffxrxytfak Pept 94.2, Total Protein 7.3, Albumin 4.5, Globulin 2.8, Albumin/Globulin Ratio 1.6, Vitamin B12 486, 25-OH Vitamin D Total 34.9, CBC w Diff NO MAN DIFF REQ, RBC 4.61, MCV 91.3, MCH 31.2 H, RDW 13.6, MPV 7.4, Gran % 80.6 H, Lymphocytes % 11.6 L, Monocytes % 4.6, Eosinophils % 2.8, Basophils % 0.4, Absolute Granulocytes 8.0 H, Absolute Lymphocytes 1.1 L, Absolute Monocytes 0.5, Absolute Eosinophils 0.3, Absolute Basophils 0, PUBS MCHC 34.2 Assessment/Plan Impression/Plan: 65-year-old woman with COPD clinic flu negative failed outpatient steroid therapy for increasing cough and wheezing. She is improved with intravenous steroids and albuterol nebs Recommendations: Recommend sputum C&S. Continue IV steroids and if she improves possible by mouth prednisone tomorrow. Assess oxygen saturations with ambulation. Consult Acknowledgment - Thank you for your consult request.
[2016-06-13 14:44] VITALS: BP 144/80
[2016-06-13 23:05] VITALS: BP 140/72
[2016-06-14 06:49] VITALS: BP 136/70
[2016-06-14 08:19] LABS: ABSOLUTE BASOPHIL COUNT 0 /CUMM (0.0-0.2); ABSOLUTE EOSINOPHIL COUNT 0 /CUMM (0.0-0.7); ABSOLUTE GRANULOCYTE CT 11.6 /CUMM (1.4-6.5); ABSOLUTE LYMPH COUNT 0.9 /CUMM (1.2-3.4); ABSOLUTE MONOCYTE COUNT 0.6 /CUMM (0.10-0.60); BASOPHIL % 0 % (0.0-2.0); EOSINOPHIL % 0.1 % (0-5); MEAN CORPUSCULAR HGB 31.6 PG (27.0-31.0); MEAN CORPUSCULAR HGB CONC 34.4 G/DL (33.0-37.0); MEAN PLATELET VOLUME 7.7 FL (7.4-10.4); PLATELET COUNT 286 /CUMM (130-400); RBC DISTRIBUTION WIDTH 13.6 % (11.5-14.5); RED BLOOD CELL CT 4.35 /CUMM (4.20-5.40)
--- NOTE | 2016-06-14 08:39 | PN- Housestaff ---
Subjective Follow-up For: COPD exacerbation Subjective: Patient seen and examined this morning. Resting comfortably in bed, ambulating in the room. Reports an improvement in dyspnea, cough and wheezing. Patient endorses chest pressure "like an elepahnt sitting on my chest." She says it started around 4:30AM when she woke up and has been there intermittently. Denies any chest pain, shortness of breath, n/v, palpitations. Review of Systems Constitutional: Reports: see HPI. Objective Last 24 Hrs of Vital Signs/I&O Vital Signs Date Time Temp Pulse Resp B/P Pulse O2 O2 Flow FiO2 Ox Delivery Rate 06/14 0824 92 Room Air 06/14 0649 98.0 80 20 136/70 94 Room Air 06/14 0000 94 Room Air 06/13 2305 98.0 83 20 140/72 94 Room Air 06/13 1623 94 Room Air 06/13 1600 Room Air 06/13 1444 98.5 84 20 144/80 94 Room Air Intake & Output 06/14 1600 06/14 0800 06/14 0000 Intake Total 250 600 Output Total Balance 250 600 Intake, Oral 250 600 Physical Exam General Appearance: Alert, Oriented X3, Cooperative, No Acute Distress Other Physical Findings: Cardiovascular: Regular Rate, Normal S1, Normal S2, No Murmurs Lungs: b/l wheeze Abdomen: Normal Bowel Sounds, Soft, No Tenderness Extremities: No Clubbing, No Cyanosis, No Edema Current Medications: Current Medications Sig/Mario Start time Last Medication Dose Route Stop Time Status Admin Acetaminophen 650 MG Q6P PRN 06/12 1745 AC PO Albuterol Sulfate 3 ML EVERY 4 HRS/AWAKE 06/12 2115 AC 06/14 INH 0823 Atorvastatin Calcium 20 MG 1700 06/13 1700 AC 06/13 PO 1806 Azithromycin 500 MG 22006/13 2200 AC 06/13 Dextrose/Water 250 ML IV 2238 Brimonidine Tartrate 1 GTT BID 06/12 2200 AC 06/13 OPH 2240 Buspirone HCl 30 MG 1000,1800 06/13 1815 AC 06/13 PO 1818 Buspirone HCl 30 MG BID 06/12 2200 DC 06/13 PO 0856 Dorzolamide HCl 1 GTT BID 06/12 220 AC 06/13 OPH 2240 Enoxaparin Sodium 40 MG DAILY 06/12 1743 AC SC Escitalopram Oxalate 20 MG DAILY 06/13 1000 AC 06/13 PO 0856 Famotidine 20 MG DAILY 06/13 1000 AC 06/13 PO 0629 Hydrochlorothiazide 25 MG DAILY 06/12 1746 AC 06/13 PO 0856 Levothyroxine Sodium 0.15 MG DAILY AC 06/13 0700 AC 06/14 PO 0615 Methylprednisolone 60 MG Q6 06/12 1800 AC 06/14 IV 06/15 1201 0615 Mirtazapine 30 MG QPM 06/12 2200 AC 06/13 PO 2240 Montelukast Sodium 10 MG AT BEDTIME 06/12 2200 AC 06/13 PO 2240 Patient Medication 1 ED .STK-MED ONE 06/13 1358 DC Teaching ED 06/13 1359 Senna/Docusate Sodium 1 TAB ONCE ONE 06/13 1700 DC 06/13 PO 06/13 1701 1805 Trazodone HCl 50 MG QPM 06/12 2200 AC 06/13 PO 2244 Last 24 Hrs of Lab/Jacob Results Last 24 Hrs of Labs/Mics: Laboratory Tests 06/14/16 0625: CBC w Diff Pending, WBC Pending, RBC Pending, Hgb Pending, Hct Pending, MCV Pending, MCH Pending, RDW Pending, Plt Count Pending, MPV Pending, PUBS MCHC Pending Microbiology 06/13 173 LOWER RESP: Respiratory Culture - COLB 06/13 173 LOWER RESP: Gram Stain - COLB Assessment/Plan Assessment: This is a 65-year-old female with past medical history of COPD not on home oxygen, hypertension, depression, bladder cancer, hyperlipidemia, asthma, hypothyroidism, COPD, presents with worsening cough and shortness of breath. Vitals upon presentation temperature 96.7, pulse 82, respiratory rate 20, pressure 153/79, saturating in mid 95 on room air. Pertinent labs, white count 9.9, H&H stable, BP within normal limits Chest x-ray did not show any acute cardiopulmonary findings. We are currently monitoring for the following conditions: # COPD exacerbation: Oxygen supplementation as needed to keep saturation above 90% TRC/nebs as needed Trnasition IV Solu-Medrol 60 mg Q6 to prednisone 60mg PO and then taper Transition IV azithromycin to PO Ceftin Start Spiriva 1 puff daily & Symbicort 2 puffs BID Start aspirin 81 mg daily Repeat CXR # Chest pressure: Serial troponins and EKGs - first set unremarkable, follow the second set # History of hyperlipidemia: Increase atorvastatin to 40 mg daily # History of hypothyroidsm We'll continue levothyroxine 0.15 mg daily # History of hypertension We'll continue home dose of hydrochlorothiazide 25 mg daily # History of depression We'll continue Lexapro 20 mg daily and mirtazapine, Mild pain pathway DVT prophylaxis with Lovenox Patient's full code. Problem List: 1. Sprain of right shoulder 2. COPD exacerbation Pain Ratin Pain Location: 0 Pain Goal: Remain pain free Pain Plan: Mild path Tomorrow's Labs & Rationales: CBC in setting of infection
[2016-06-14 09:44] LABS: WHITE BLOOD CELL COUNT 13.2 /CUMM (4.8-10.8)
--- NOTE | 2016-06-14 13:27 | PN- Pulmonary ---
See Addendum Subjective HPI/Critical Care Issues: Patient seen and examined this morning. Resting comfortably in bed, ambulating in the room. Reports an improvement in dyspnea, cough and wheezing. Patient endorses chest pressure only when she takes a deep breath precordial and it resolves if she breaths gently Has occ gerd and say she may have had some symptoms Review of Systems Constitutional: Reports: see HPI. Objective Current Medications: Current Medications Sig/Mario Start time Last Medication Dose Route Stop Time Status Admin Acetaminophen 650 MG Q6P PRN 06/12 1745 AC PO Albuterol Sulfate 3 ML EVERY 4 HRS/AWAKE 06/12 2115 AC 06/14 INH 0823 Atorvastatin Calcium 20 MG 1700 06/13 1700 AC 06/13 PO 1806 Azithromycin 500 MG 22006/13 2200 AC 06/13 Dextrose/Water 250 ML IV 2238 Brimonidine Tartrate 1 GTT BID 06/12 2200 AC 06/14 OPH 0901 Buspirone HCl 30 MG 1000,1800 06/13 1815 AC 06/14 PO 0902 Buspirone HCl 30 MG BID 06/12 2200 DC 06/13 PO 0856 Dorzolamide HCl 1 GTT BID 06/12 2200 AC 06/14 OPH 0901 Enoxaparin Sodium 40 MG DAILY 06/12 1743 AC SC Escitalopram Oxalate 20 MG DAILY 06/13 1000 AC 06/14 PO 0903 Famotidine 20 MG DAILY 06/13 1000 AC 06/14 PO 0904 Guaifenesin 600 MG Q12 06/14 1037 AC 06/14 PO 1307 Hydrochlorothiazide 25 MG DAILY 06/12 1746 AC 06/14 PO 0902 Levothyroxine Sodium 0.15 MG DAILY AC 06/13 0700 AC 06/14 PO 0615 Methylprednisolone 60 MG Q6 06/12 1800 AC 06/14 IV 06/15 1201 1307 Mirtazapine 30 MG QPM 06/12 2200 AC 06/13 PO 2240 Montelukast Sodium 10 MG AT BEDTIME 06/12 2200 AC 06/13 PO 2240 Patient Medication 1 ED .STK-MED ONE 06/13 1358 DC Teaching ED 06/13 1359 Senna/Docusate Sodium 1 TAB ONCE ONE 06/13 1700 DC 06/13 PO 06/13 1701 1805 Trazodone HCl 50 MG QPM 06/12 2200 AC 06/13 PO 2244 Vital Signs & I&O Last 24 Hrs of Vitals and I&O: Vital Signs Date Time Temp Pulse Resp B/P Pulse O2 O2 Flow FiO2 Ox Delivery Rate 06/14 0824 92 Room Air 06/14 0649 98.0 80 20 136/70 94 Room Air 06/14 0000 94 Room Air 06/13 2305 98.0 83 20 140/72 94 Room Air 06/13 1623 94 Room Air 06/13 1600 Room Air 06/13 1444 98.5 84 20 144/80 94 Room Air Intake & Output 06/14 1600 06/14 0800 06/14 0000 Intake Total 250 600 Output Total Balance 250 600 Intake, Oral 250 600 Impression/Plan Impression/Plan Impression/Plan: Physical Exam General Appearance: Alert, Oriented X3, Cooperative, No Acute Distress Other Physical Findings: Cardiovascular: Regular Rate, Normal S1, Normal S2, No Murmurs Lungs: b/l wheeze Abdomen: Normal Bowel Sounds, Soft, No Tenderness Extremities: No Clubbing, No Cyanosis, No Edema IMPRESSION This is a 65-year-old female with past medical history of COPD not on home oxygen, hypertension, depression, bladder cancer, hyperlipidemia, asthma, hypothyroidism, COPD, presents with worsening cough and shortness of breath. COPD exacerbation: Improving CHest pressure upon deep breath in the precordial area unlikely ihd prob musculoskeletal - rule out ihd with trop/.ekg (initial trop neg) Gerd HLD/HTN/Hypothyroid REC Serial EKG Serial troponin If there is any change send her to telemetry Repeat chest x-ray DC IVS with the per her on by mouth Ceftin 500 twice a day Continue atorvastatin increase his dose to 40 Omeprazole 40 daily Nebulizer therapy as needed Start Spiriva 1 puff daily Start Symbicort 2 puffs twice a day Start aspirin 81 mg daily If the pain continues if she has any changes please call cardiology for evaluation
[2016-06-14 14:53] VITALS: BP 164/86
[2016-06-14 22:07] VITALS: BP 150/68
--- NOTE | 2016-06-14 23:06 | RADIOLOGY REPORT ---
EXAMINATION: XR PORTABLE CHEST CLINICAL INFORMATION: Shortness of breath COMPARISON: 06/12/2016 chest x-ray TECHNIQUE: Portable view of the chest was obtained. FINDINGS: The cardiomediastinal silhouette is normal. There are pulmonary opacities at the left lung base and right lower lobe, projecting over right cardiophrenic angle. No pleural effusions. The visualized bony thorax is unremarkable. The thoracic apex is not included in the exam. IMPRESSION: Pulmonary opacities at the left lung base and right lower lobe could represent pneumonia and/or atelectasis. Clinical correlation is advised.
--- NOTE | 2016-06-15 06:01 | PN- Housestaff ---
Subjective Follow-up For: COPD exacerbation Subjective: Patient seen and examined this morning. No events reported overnight. Resting comfortably in bed, ambulating in the room. Reports feeling well with no new complaints. She reports that her chest discomfort has completely resolved. Troponins and EKGs were negative yest. Denies shortness of breath, n/v, palpitations. Review of Systems Constitutional: Reports: see HPI. Objective Last 24 Hrs of Vital Signs/I&O Vital Signs Date Time Temp Pulse Resp B/P Pulse O2 O2 Flow FiO2 Ox Delivery Rate 06/15 0758 92 Room Air Room Air 06/15 0642 98.0 80 20 140/66 90 Room Air 06/15 0000 90 Room Air 06/14 2207 98.2 83 20 150/68 90 Room Air 06/14 1645 92 Room Air 06/14 1600 96 Room Air 06/14 1453 98.9 87 22 164/86 94 Intake & Output 06/15 1600 06/15 0800 06/15 0000 Intake Total 200 Output Total Balance 200 Intake, Oral 200 Physical Exam General Appearance: Alert, Oriented X3, Cooperative, No Acute Distress Other Physical Findings: Cardiovascular: Regular Rate, Normal S1, Normal S2, No Murmurs Lungs: b/l wheeze with expiration - improving Abdomen: Normal Bowel Sounds, Soft, No Tenderness Extremities: No Clubbing, No Cyanosis, No Edema Current Medications: Current Medications Sig/Mario Start time Last Medication Dose Route Stop Time Status Admin Acetaminophen 650 MG .STK-MED ONE 06/14 1605 DC PO 06/14 1606 Acetaminophen 650 MG Q6P PRN 06/12 1745 AC 06/14 PO 1610 Albuterol Sulfate 3 ML EVERY 4 HRS/AWAKE 06/12 2115 AC 06/15 INH 0754 Aspirin 81 MG DAILY 06/14 1804 AC 06/15 PO 0852 Atorvastatin Calcium 40 MG 1700 06/15 1700 AC PO Atorvastatin Calcium 20 MG 1700 06/13 1700 DC 06/14 PO 1610 Azithromycin 500 MG 06/13 DC 06/13 Dextrose/Water 250 ML IV 2238 Brimonidine Tartrate 1 GTT BID 06/12 2200 AC 06/15 OPH 0852 Budesonide/ 2 PUF BID 06/14 2200 AC 06/15 Formoterol Fumarate INH 0853 Buspirone HCl 30 MG 1000,1800 06/13 1815 AC 06/15 PO 0851 Cefuroxime Sodium 250 MG Q12 06/14 2200 AC 06/15 PO 0849 Dorzolamide HCl 1 GTT BID 06/12 2200 AC 06/15 OPH 0853 Enoxaparin Sodium 40 MG DAILY 06/12 1743 AC SC Escitalopram Oxalate 20 MG DAILY 06/13 1000 AC 06/15 PO 0851 Famotidine 20 MG DAILY 06/13 1000 AC 06/15 PO 0850 Guaifenesin 600 MG Q12 06/14 1037 AC 06/15 PO 0850 Hydrochlorothiazide 25 MG DAILY 06/12 1746 AC 06/15 PO 0851 Levothyroxine Sodium 0.15 MG DAILY AC 06/13 0700 AC 06/15 PO 0613 Methylprednisolone 60 MG Q6 06/12 1800 DC 06/14 IV 06/15 1201 1307 Mirtazapine 30 MG QPM 06/12 2200 AC 06/14 PO 2108 Montelukast Sodium 10 MG AT BEDTIME 06/12 2200 AC 06/14 PO 2108 Omeprazole 40 MG DAILY AC 06/14 1804 AC 06/15 PO 0613 Patient Medication 1 UNIT ONE NR 06/14 1900 [place] Teaching ED 06/14 1930 Patient Medication 1 UNIT ONE NR 06/14 [facility] 06/14 1930 Polyethylene Glycol 17 GM DAILY 06/14 1616 AC 06/15 PO 0849 Prednisone 60 MG DAILY 06/15 1000 AC 06/15 PO 0849 Prednisone 60 MG DAILY 06/14 1802 CAN PO Tiotropium [place] 1 PUF DAILY 06/14 1804 AC 06/15 INH 0849 Trazodone HCl 50 MG QPM 06/12 2200 AC 06/14 PO 2108 Last 24 Hrs of Lab/Jacob Results Last 24 Hrs of Labs/Mics: Laboratory Tests 06/15/16 0715: Anion Gap 14, Estimated GFR > 60, BUN/Creatinine Ratio 20.0, CBC w Diff NO MAN DIFF REQ, RBC 4.33, MCV 93.4, MCH 31.3 H, RDW 13.7, MPV 7.5, Gran % 73.9, Lymphocytes % 14.3 L, Monocytes % 11.5 H, Eosinophils % 0.2, Basophils % 0.1, Absolute Granulocytes 8.3 H, Absolute Lymphocytes 1.6, Absolute Monocytes 1.3 H, Absolute Eosinophils 0, Absolute Basophils 0, PUBS MCHC 33.5 06/14/16 1625: Troponin I < 0.01 Assessment/Plan Assessment: This is a 65-year-old female with past medical history of COPD not on home oxygen, hypertension, depression, bladder cancer, hyperlipidemia, asthma, hypothyroidism, COPD, presents with worsening cough and shortness of breath. Vitals upon presentation temperature 96.7, pulse 82, respiratory rate 20, pressure 153/79, saturating in mid 95 on room air. Pertinent labs, white count 9.9, H&H stable, BP within normal limits Chest x-ray did not show any acute cardiopulmonary findings. We are currently monitoring for the following conditions: # COPD exacerbation: * Oxygen supplementation as needed to keep saturation above 90% * TRC/nebs as needed * Continue steroid taper, currently on prednisone 60mg PO (started on 06/14) * Cont Ceftin 500mg PO BID * Cont Spiriva 1 puff daily & Symbicort 2 puffs BID * Cont aspirin 81 mg daily * Repeat CXR -Pulmonary opacities at the left lung base and right lower lobe indicative of possible pneumonia vs. atelectasis. * Appreciate pulm recs # Chest pressure: * Serial troponins and EKGs - first & second sets negative # History of hyperlipidemia: * Atorvastatin to 40 mg daily (increased on 06/14) # History of hypothyroidsm Continue levothyroxine 0.15 mg daily # History of hypertension Continue home dose of hydrochlorothiazide 25 mg daily # History of depression We'll continue Lexapro 20 mg daily and mirtazapine, Mild pain pathway DVT prophylaxis with Lovenox Patient's full code. Problem List: 1. COPD exacerbation Pain Ratin Pain Location: 0 Pain Goal: Remain pain free Pain Plan: Mild pathway Tomorrow's Labs & Rationales: None
[2016-06-15 06:42] VITALS: BP 140/66
[2016-06-15 08:51] LABS: ABSOLUTE BASOPHIL COUNT 0 /CUMM (0.0-0.2); ABSOLUTE EOSINOPHIL COUNT 0 /CUMM (0.0-0.7); ABSOLUTE GRANULOCYTE CT 8.3 /CUMM (1.4-6.5); ABSOLUTE LYMPH COUNT 1.6 /CUMM (1.2-3.4); ABSOLUTE MONOCYTE COUNT 1.3 /CUMM (0.10-0.60); BASOPHIL % 0.1 % (0.0-2.0); EOSINOPHIL % 0.2 % (0-5); GRANULOCYTE % 73.9 % (42.2-75.2); HEMATOCRIT 40.5 % (37-47); MEAN CORPUSCULAR HGB 31.3 PG (27.0-31.0); MEAN CORPUSCULAR HGB CONC 33.5 G/DL (33.0-37.0); MEAN CORPUSCULAR VOLUME 93.4 FL (81.0-99.0); MEAN PLATELET VOLUME 7.5 FL (7.4-10.4); PLATELET COUNT 260 /CUMM (130-400); RBC DISTRIBUTION WIDTH 13.7 % (11.5-14.5); RED BLOOD CELL CT 4.33 /CUMM (4.20-5.40); WHITE BLOOD CELL COUNT 11.3 /CUMM (4.8-10.8)
--- NOTE | 2016-06-15 10:42 | PN- Pulmonary ---
Subjective HPI/Critical Care Issues: Patient seen and examined this morning. No events reported overnight. Resting comfortably in bed, ambulating in the room. Reports feeling well with no new complaints. She reports that her chest discomfort has completely resolved. Troponins and EKGs were negative yest. Denies shortness of breath, n/v, palpitations. Review of Systems Constitutional: Reports: see HPI. Objective Current Medications: Current Medications Sig/Mario Start time Last Medication Dose Route Stop Time Status Admin Acetaminophen 650 MG .STK-MED ONE 06/14 1605 DC PO 06/14 1606 Acetaminophen 650 MG Q6P PRN 06/12 1745 AC 06/14 PO 1610 Albuterol Sulfate 3 ML EVERY 4 HRS/AWAKE 06/12 2115 AC 06/15 INH 0754 Aspirin 81 MG DAILY 06/14 1804 AC 06/15 PO 0852 Atorvastatin Calcium 40 MG 1700 06/15 1700 AC PO Atorvastatin Calcium 20 MG 1700 06/13 1700 DC 06/14 PO 1610 Azithromycin 500 MG 2200 06/13 2200 DC 06/13 Dextrose/Water 250 ML IV 2238 Brimonidine Tartrate 1 GTT BID 06/12 2200 AC 06/15 OPH 0852 Budesonide/ 2 PUF BID 06/14 2200 AC 06/15 Formoterol Fumarate INH 0853 Buspirone HCl 30 MG 1000,1800 06/13 1815 AC 06/15 PO 0851 Cefuroxime Sodium 250 MG Q12 06/14 2200 AC 06/15 PO 0849 Dorzolamide HCl 1 GTT BID 06/12 2200 AC 06/15 OPH 0853 Enoxaparin Sodium 40 MG DAILY 06/12 1743 AC SC Escitalopram Oxalate 20 MG DAILY 06/13 1000 AC 06/15 PO 0851 Famotidine 20 MG DAILY 06/13 1000 AC 06/15 PO 0850 Guaifenesin 600 MG Q12 06/14 1037 AC 06/15 PO 0850 Hydrochlorothiazide 25 MG DAILY 06/12 1746 AC 06/15 PO 0851 Levothyroxine Sodium 0.15 MG DAILY AC 06/13 0700 AC 06/15 PO 0613 Methylprednisolone 60 MG Q6 06/12 1800 DC 06/14 IV 06/15 1201 1307 Mirtazapine 30 MG QPM 06/12 2200 AC 06/14 PO 2108 Montelukast Sodium 10 MG AT BEDTIME 06/12 2200 AC 06/14 PO 2108 Omeprazole 40 MG DAILY AC 06/14 1804 AC 06/15 PO 0613 Patient Medication 1 UNIT ONE NR 06/14 1900 [facility] ED 06/14 1929 Patient Medication 1 UNIT ONE NR 06/14 1900 [facility] ED 06/14 1930 Polyethylene Glycol 17 GM DAILY 06/14 1616 AC 06/15 PO 0849 Prednisone 60 MG DAILY 06/15 1000 AC 06/15 PO 0849 Prednisone 60 MG DAILY 06/14 1802 CAN PO Tiotropium [place] 1 PUF DAILY 06/14 180 AC 06/15 INH 0849 Trazodone HCl 50 MG QPM 06/12 2200 AC 06/14 PO 2108 Vital Signs & I&O Last 24 Hrs of Vitals and I&O: Vital Signs Date Time Temp Pulse Resp B/P Pulse O2 O2 Flow FiO2 Ox Delivery Rate 06/15 0758 92 Room Air Room Air 06/15 0642 98.0 80 20 140/66 90 Room Air 06/15 0000 90 Room Air 06/14 2207 98.2 83 20 150/68 90 Room Air 06/14 1645 92 Room Air 06/14 1600 96 Room Air 06/14 1453 98.9 87 22 164/86 94 Intake & Output 06/15 1600 06/15 0800 06/15 0000 Intake Total 200 Output Total Balance 200 Intake, Oral 200 Laboratory Tests 06/15 06/14 06/14 0715 1625 1022 Chemistry Sodium (137 - 145 mmol/L) 140 Potassium (3.5 - 5.1 mmol/L) 3.6 Chloride (98 - 107 mmol/L) 93 L Carbon Dioxide (22 - 30 mmol/L) 34 H Anion Gap (5 - 16) 14 BUN (7 - 17 mg/dL) 16 Creatinine (0.5 - 1.0 mg/dL) 0.8 Estimated GFR (>60 ml/min) > 60 BUN/Creatinine Ratio (7 - 25 %) 20.0 Troponin I (< 0.11 ng/ml) < 0.01 < 0.01 Hematology CBC w Diff NO MAN DIFF REQ WBC (4.8 - 10.8 /CUMM) 11.3 H RBC (4.20 - 5.40 /CUMM) 4.33 Hgb (12.0 - 16.0 G/DL) 13.6 Hct (37 - 47 %) 40.5 MCV (81.0 - 99.0 FL) 93.4 MCH (27.0 - 31.0 PG) 31.3 H RDW (11.5 - 14.5 %) 13.7 Plt Count (130 - 400 /CUMM) 260 MPV (7.4 - 10.4 FL) 7.5 Gran % (42.2 - 75.2 %) 73.9 Lymphocytes % (20.5 - 51.1 %) 14.3 L Monocytes % (1.7 - 9.3 %) 11.5 H Eosinophils % (0 - 5 %) 0.2 Basophils % (0.0 - 2.0 %) 0.1 Absolute Granulocytes (1.4 - 6.5 /CUMM) 8.3 H Absolute Lymphocytes (1.2 - 3.4 /CUMM) 1.6 Absolute Monocytes (0.10 - 0.60 /CUMM) 1.3 H Absolute Eosinophils (0.0 - 0.7 /CUMM) 0 Absolute Basophils (0.0 - 0.2 /CUMM) 0 PUBS MCHC (33.0 - 37.0 G/DL) 33.5 06/14 0625 Hematology CBC w Diff NO MAN DIFF REQ WBC (4.8 - 10.8 /CUMM) 13.2 H RBC (4.20 - 5.40 /CUMM) 4.35 Hgb (12.0 - 16.0 G/DL) 13.8 Hct (37 - 47 %) 40.0 MCV (81.0 - 99.0 FL) 92.0 MCH (27.0 - 31.0 PG) 31.6 H RDW (11.5 - 14.5 %) 13.6 Plt Count (130 - 400 /CUMM) 286 MPV (7.4 - 10.4 FL) 7.7 Gran % (42.2 - 75.2 %) 88.0 H Lymphocytes % (20.5 - 51.1 %) 7.0 L Monocytes % (1.7 - 9.3 %) 4.9 Eosinophils % (0 - 5 %) 0.1 Basophils % (0.0 - 2.0 %) 0 L Absolute Granulocytes (1.4 - 6.5 /CUMM) 11.6 H Absolute Lymphocytes (1.2 - 3.4 /CUMM) 0.9 L Absolute Monocytes (0.10 - 0.60 /CUMM) 0.6 Absolute Eosinophils (0.0 - 0.7 /CUMM) 0 Absolute Basophils (0.0 - 0.2 /CUMM) 0 PUBS MCHC (33.0 - 37.0 G/DL) 34.4 Microbiology Date/Time Procedure - Status Source Growth 06/13 1731 Respiratory Culture - CAN LOWER RESP Cancelled: NO SPUTUM COLELCTED FOR MICRO DEPT 06/13 1731 Gram Stain - CAN LOWER RESP Cancelled: NO SPUTUM COLELCTED FOR MICRO DEPT 06/12 1925 Respiratory Culture - CAN LOWER RESP Cancelled: NO SAMPLE COLLECTED 06/12 1925 Gram Stain - CAN LOWER RESP Cancelled: NO SAMPLE COLLECTED 06/12 1330 Blood Culture - RES BLOOD 06/12 1220 Blood Culture - RES BLOOD Impression/Plan Impression/Plan Impression/Plan: Physical Exam General Appearance: Alert, Oriented X3, Cooperative, No Acute Distress Other Physical Findings: Cardiovascular: Regular Rate, Normal S1, Normal S2, No Murmurs Lungs: b/l wheeze Abdomen: Normal Bowel Sounds, Soft, No Tenderness Extremities: No Clubbing, No Cyanosis, No Edema Chest x-ray showed pneumonia/atelectasis IMPRESSION This is a 65-year-old female with past medical history of COPD not on home oxygen, hypertension, depression, bladder cancer, hyperlipidemia, asthma, hypothyroidism, COPD, presents with worsening cough and shortness of breath. 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
[2016-06-15] MEDS ORDERED: ASPIRIN81 M4 PO (10:58)
[2016-06-15] MEDS ORDERED: PREDNISONE20 M1 PO (10:58)
[2016-06-15] MEDS ORDERED: GUAIFENESIN ER600 MG PO (10:58)
[2016-06-15] MEDS ORDERED: OMEPRAZOLE20 M2 PO (10:58)
[2016-06-15] MEDS ORDERED: RANITIDINE HCL300 M1 PO (10:58)
--- NOTE | 2016-06-15 11:02 | Patient Discharge Instructions ---
Discharge Instructions General Discharge Information You were seen/treated for: COPD exacerbation Special Instructions: 1. Please get the CXR done next week before follow up with Dr. Trejo. 2. Please follow up with Dr. Trejo (lung doctor) and Dr. Beckham (primary care) within a week of discharge. Diet Continue normal diet: Yes Activity Full Activity/No Limits: Yes Acute Coronary Syndrome Inclusion Criteria At DC or during hospital stay patient has or had the following: ACS DIAGNOSIS No Discharge Core Measures Meds if any: Prescribed or Continued at Discharge Meds if any: NOT Prescribed or Continued at Discharge Congestive Heart Failure Inclusion Criteria At DC or during hospital stay patient has or had the following: CHF DIAGNOSIS No Discharge Core Measures Meds if any: Prescribed or Continued at Discharge Meds if any: NOT Prescribed or Continued at Discharge Cerebrovascular accident Inclusion Criteria At DC or during hospital stay patient has or had the following: CVA/TIA Diagnosis No Discharge Core Measures Meds if any: Prescribed or Continued at Discharge Meds if any: NOT Prescribed or Continued at Discharge Venous thromboembolism Inclusion Criteria VTE Diagnosis No VTE Type NONE VTE Confirmed by (Test) NONE Discharge Core Measures - Per Current guidelines, there needs to be overlap - treatment for the first 5 days of Warfarin therapy. - If discharged on Warfarin prior to 5 days of - overlap therapy, the patient will need to be - assessed for post discharge needs including - *Post discharge parental anticoagulation - *Warfarin and/or parental anticoagulation education - *Follow up date to check INR post discharge At least 5 days overlap therapy as Inpatient No Meds if any: Prescribed or Continued at Discharge Note: Overlap Therapy is Warfarin and Anticoagulant Meds if any: NOT Prescribed or Continued at Discharge
[2016-06-15] MEDS ORDERED: AMOX-CLAV 875-1 EACH PO (11:05)
[2016-06-15] MEDS ORDERED: SPIRIVA18 MCG INH (11:07)
[2016-06-15] MEDS ORDERED: SYMBICORT 80-10.2 GM INH (11:07)
--- NOTE | 2016-06-17 18:31 | Discharge Summary ---
Visit Information Visit Dates Admission Date: 06/12/16 Discharge Date: 06/15/16 Hospital Course Course Attending Physician: RANDA BECKHAM MD Primary Care Physician: RANDA BECKHAM MD Consulting Request: Consulting Specialty: Pulmonary Disease Consulting Physician: Dr. Trejo Reason for Consult: exacerbation of COPD Hospital Course: 65-year-old white female with known history of COPD with a recent exacerbation responding to outpatient treatment. Came in with increased shortness of breath. In the ER got respiratory treatments with only partial relief and was admitted received IV steroids and respiratory therapy area improved and was seen by Dr. Berg. Slowly she improved and was able to be discharged on Thursday the Complications: None Allergies: Coded Allergies: codeine (UNKNOWN 06/12/16) hydrocodone (GI UPSET 06/12/16) Pertinent Lab Results: Laboratory Tests 06/12/16 1220: Anion Gap 17 H, Estimated GFR > 60, BUN/Creatinine Ratio 11.3, Glucose 134 H, Calcium 10.1, Total Bilirubin 0.4, AST 27, ALT 27, Alkaline Phosphatase 65, Troponin I < 0.01, Wlw-T-Ioyutygmfyb Pept 94.2, Total Protein 7.3, Albumin 4.5, Globulin 2.8, Albumin/Globulin Ratio 1.6, CBC w Diff NO MAN DIFF REQ, RBC 4.61, MCV 91.3, MCH 31.2 H, RDW 13.6, MPV 7.4, Gran % 80.6 H, Lymphocytes % 11.6 L, Monocytes % 4.6, Eosinophils % 2.8, Basophils % 0.4, Absolute Granulocytes 8.0 H, Absolute Lymphocytes 1.1 L, Absolute Monocytes 0.5, Absolute Eosinophils 0.3 , Absolute Basophils 0, PUBS MCHC 34.2 06/13/16 0740: Anion Gap 20 H, Estimated GFR > 60, BUN/Creatinine Ratio 22.5, CBC w Diff NO MAN DIFF REQ, RBC 4.49, MCV 92.3, MCH 31.4 H, RDW 13.7, MPV 7.6, Gran % 85.8 H , Lymphocytes % 10.2 L, Monocytes % 3.8, Eosinophils % 0.2, Basophils % 0 L, Absolute Granulocytes 9.5 H, Absolute Lymphocytes 1.1 L, Absolute Monocytes 0.4, Absolute Eosinophils 0, Absolute Basophils 0, PUBS MCHC 34.0 01/15/17 0715: Anion Gap 14, Estimated GFR > 60, BUN/Creatinine Ratio 20.0, CBC w Diff NO MAN DIFF REQ, RBC 4.33, MCV 93.4, MCH 31.3 H, RDW 13.7, MPV 7.5, Gran % 73.9, Lymphocytes % 14.3 L, Monocytes % 11.5 H, Eosinophils % 0.2, Basophils % 0.1, Absolute Granulocytes 8.3 H, Absolute Lymphocytes 1.6, Absolute Monocytes 1.3 H, Absolute Eosinophils 0, Absolute Basophils 0, PUBS MCHC 33.5 06/14/16 1625: Troponin I < 0.01 Disposition Summary Disposition Principal Diagnosis: Exacerbation of her COPD Additional Diagnosis: Hypertension Depression Bladder cancer Lipidemia Hypertension Discharge Disposition: home or self care Discharge Instructions General Discharge Information Code Status: Full Code Patient's Diet: Healthy heart Patient's Activity: As tolerated Follow-Up Instructions/Appts: Follow-up with Dr. Beckham and pulmonary Medications at Discharge Discharge Medications: Stop taking the following medications: Prednisone (Prednisone) 10 MG TABLET ORAL DAILY Qty = 18 Continue taking these medications: Brimonidine Tartrate/Timolol (Combigan Eye Drops) 0.2 %-0.5 % DROPS 1 DROP OPHTHALMIC TWICE DAILY Qty = 10 Dorzolamide HCl (Dorzolamide HCl) 2 % DROPS 1 Drop In the eye TWICE DAILY Qty = 10 Buspirone HCl (Buspirone HCl) 30 MG TABLET 1 Tablet ORAL TWICE DAILY Qty = 180 Comments: TAKEN 06/15 AT 10AM Mirtazapine (Mirtazapine) 30 MG TABLET 1 Tablet ORAL Every night Qty = 90 Comments: TAKEN 06/14 AT 2200 Trazodone HCl (Trazodone HCl) 50 MG TABLET 1 Tablet ORAL Every night Qty = 90 Comments: NOT GIVEN IN THE HOSPITAL Escitalopram Oxalate (Escitalopram Oxalate) 20 MG TABLET 1 Tablet ORAL DAILY Qty = 90 Comments: TAKEN 06/15 AT 10AM Umeclidinium Brm/Vilanterol Tr (Anoro Ellipta 62.5-25 Mcg INH) 62.5 MCG-25 MCG/ ACTUATION BLST.W.DEV 1 PUFF ORAL DAILY Qty = 120 Montelukast Sodium (Montelukast Sodium) 10 MG TABLET 1 Tablet ORAL DAILY Qty = 60 Comments: TAKEN 06/14 AT 10PM Levothyroxine Sodium (Levothyroxine Sodium) 150 MCG TABLET 1 Tablet ORAL DAILY BEFORE BREAKFAST Qty = 90 Comments: TAKEN 03/15 AT 0700AM Hydrochlorothiazide (Hydrochlorothiazide) 25 MG TABLET 1 Tablet ORAL DAILY Qty = 90 Comments: TAKEN 06/15 AT 10AM Simvastatin (Simvastatin*) 40 MG TABLET 1 Tablet ORAL Every night Qty = 90 Comments: TAKEN 06/14 AT 5PM Potassium Chloride (Potassium Chloride) 20 MEQ TAB.ER.PRT 1 Tablet ORAL DAILY Qty = 60 Albuterol Sulfate (Proair Hfa) 90 MCG HFA.AER.AD 2 Puff Inhale through mouth EVERY 4-6 HOURS NEEDED as needed for RESPIRATORY Qty = 8 Albuterol Sulfate (Albuterol Sulfate) 2.5 MG/3 ML (0.083 %) VIAL.NEB 1 Vial Inhale Solution EVERY 4 HOURS NEEDED as needed for RESPIRATORY Qty = 360 Start taking the following new medications: Aspirin (Aspirin*) 81 MG TAB.CHEW 81 Milligram ORAL DAILY Days = 30 No Refills Guaifenesin (Guaifenesin ER) 600 MG TAB.ER.12H 600 Milligram ORAL EVERY 12 HOURS as needed for COUGH Days = 10 No Refills Omeprazole (Omeprazole) 20 MG CAPSULE.DR 40 Milligram ORAL DAILY BEFORE BREAKFAST Days = 14 No Refills Prednisone (Prednisone) 20 MG TABLET 60 Milligram ORAL DAILY Days = 10 No Refills Instructions: DATE DOSE 06/15 60MG ONCE DAILY 06/16-06/17 50MG ONCE DAILY 06/18-06/19 40MG ONCE DAILY 06/20-06/21 30MG ONCE DAILY 06/22-06/23 20MG ONCE DAILY 06/24-06/25 10MG ONCE DIALY Amoxicillin/Clavulanate Potass (Amox-Clav 875-125 MG Tablet) 875 MG-125 MG TABLET 875 Milligram ORAL EVERY 12 HOURS Days = 3 No Refills Instructions: PLEASE STOP AFTER LAST DOSE ON 06/17. The following medications have been changed: Old: Ranitidine HCl (Ranitidine HCl) 300 MG TABLET 1 Tablet ORAL Every night Qty = 60 New: Ranitidine HCl (Ranitidine HCl) 300 MG TABLET 1 Tablet ORAL Every night as needed for HEARTBURN Qty = 60 Copies To: DIMA CORONEL,AKILAH Batista; LUIS CORONEL,ARNDA Attending Review Statement Documenting Attending: RANDA BECKHAM MD
== END 2016-06-15 14:50 | DRG 192 ==
LOC: ENRESERVDT → ENRESERVTM → ERH 10:41 → ENPENDDIS 13:51 → ERHI 13:51 → 2NA 13:51 → ERH 13:52 → ERHI 13:52 → 2NA 17:04
PROVIDERS: Physician Assistant Medical; Student in an Organized Health Care Education/Training Program; ADMIT Internal Medicine
DX: J44.1 Chronic obstructive pulmonary disease with (acute) exacerbation (principal); I10 Essential (primary) hypertension; F32.9 Major depressive disorder, single episode, unspecified; E78.5 Hyperlipidemia, unspecified; E03.9 Hypothyroidism, unspecified; Z85.51 Personal history of malignant neoplasm of bladder
CPT/HCPCS: 2NASP; 36415; 82436; 87040; 87070; 87804; 87804-59; 93005; 93010; 96374; J0456; J1650; J2930; J3490; J7060